=== PATIENT | female | born 2000 | race Caucasian/White ===

== ENCOUNTER → 2024-04-04 12:08 | Outpatient (REF) | payer OTHER, SELFPAY ==
[2024-04-04 15:50] LABS: Free T4 1.69 ng/dl (0.78-2.19)
[2024-04-04 16:04] LABS: TSH 0.54 uIU/ml (0.47-4.68)
[2024-04-06 12:54] LABS: Thyroglobulin Antibodies <0.9 IU/mL (0.0-4.0); Thyroid Peroxidase Ab (TPO) 2.9 IU/mL (0.0-9.0)
== END ==
LOC: HWLAB 12:08
PROVIDERS: ATTENDING PHYSICIAN Pediatrics; FAMILY PHYSICIAN Family Medicine
DX: E03.9 Hypothyroidism, unspecified (principal)
CPT/HCPCS: 36415; 84439; 84443; 86376; 86800

== ENCOUNTER → 2025-06-21 11:47 | Outpatient (REF) | payer OTHER, SELFPAY ==
[2025-06-21 16:10] LABS: Hematocrit 40.4 % (37.0-47.0); Hemoglobin 13.5 g/dL (12.0-16.0); Mean Corp Hgb Conc. 33.4 g/dL (33.0-37.0); Mean Corpuscular Volume 89.8 fL (81.0-99.0); Nucleated Red Blood Cells % 0 %; Platelet Count 328 10^3/uL (130-400); Red Cell Dist. Width 12.2 % (11.5-14.5)
[2025-06-21 16:27] LABS: ALT (SGPT) 17 U/L (0-35); AST (SGOT) 21 U/L (14-36); Albumin 4.6 g/dl (3.5-5.0); Alkaline Phosphatase 42 U/L (38-126); Blood Urea Nitrogen 13 mg/dl (7-17); Calcium 10.0 mg/dl (8.4-10.2); Carbon Dioxide 20 mmol/L (22-30); Chloride 105 mmol/L (98-107); Glucose 89 mg/dl (70-99); HDL Cholesterol 98 mg/dl; Potassium 4.5 mmol/L (3.5-5.1); Sodium 134 mmol/L (135-145); Total Protein 7.7 g/dl (6.3-8.2); Very Low Density Lipoprotein 29 mg/dl (0-30); eGFR > 60.00
[2025-06-21 16:36] LABS: LDL Cholesterol, Calculated 124 mg/dl
== END ==
LOC: HWLAB 11:47
PROVIDERS: ATTENDING PHYSICIAN Family Medicine
DX: Z00.00 Encounter for general adult medical examination without abnormal findings (principal); E03.9 Hypothyroidism, unspecified
CPT/HCPCS: 36415; 80053; 80061; 84443; 85025